=== PATIENT | male | born 1960 | race Caucasian/White ===

== ENCOUNTER → 2016-09-03 | Outpatient (CLI) | payer OTHER | LOC: FIMAGING 16:27 | PROVIDERS: ATTEND Emergency Medicine | DX: R60.0 Localized edema (principal) ==

== ENCOUNTER 2018-05-23 11:21 | Emergency (ER) | payer OTHER ==
--- NOTE | 2018-05-23 12:15 | EDPHY ---
H & P Stated Complaint: R knee pain and swelling x 1 week. Denies trauma, injury Time Seen by Provider: 05/23/18 11:31 HPI/ROS: Chief Complaint: Right leg pain HPI: 57-year-old male's had 1 week of worsening right knee and calf pain and swelling. Denies any falls or injuries. No chest pain or shortness of breath. He was in the hospital about a week and half ago and diagnosed with atrial fibrillation. At that time he was started on rivaroxaban 20 mg daily. He has been taking this without fail. No redness, no fever, no falls or injuries. He is ambulating with discomfort. No history of prior episodes in the past. No history of gout. PMH: ROS: 10 systems were reviewed and were negative except those elements noted in the HPI. Social History: No smoking, no alcohol, no recreational drug use Family History: non-contributory Physical Exam: Gen: Awake, Alert, No Distress HEENT: Nose: no rhinorrhea Eyes: PERRLA, EOMI Mouth: Moist mucosa Neck: Supple, no JVD Chest: nontender, lungs clear to auscultation Heart: S1, S2 normal, no murmur Abd: Soft, non-tender, no guarding Back: no CVA tenderness, no midline tenderness Ext: Right leg is edematous, nonpitting. Measures 2 cm in greater diameter than the left. Calf is firm to touch. Knee is mildly swollen. There is no joint effusion. There is no bony tenderness. He has full flexion extension. No reproducible pain or discomfort. Normal distal perfusion. Capillary refills less than 2 sec. Normal dorsalis pedis pulses. Skin: no rash Neuro: CN II-XII intact, Sensation grossly intact, Strength 5/5 in bilateral upper and lower extremities - Personal History Current Tetanus Diphtheria and Acellular Pertussis (TDAP): Yes Tetanus Vaccine Date: within 10 years - Medical/Surgical History Hx Asthma: No Hx Chronic Respiratory Disease: No Hx Diabetes: No Hx Cardiac Disease: No Hx Renal Disease: No Hx Cirrhosis: No Hx Alcoholism: No Hx HIV/AIDS: No Hx Splenectomy or Spleen Trauma: No Other PMH: Peripheral edema, BIANCA, AFIB, hernia, acid reflux - Social History Smoking Status: Never smoked Constitutional: Initial Vital Signs Temperature (C) 36.5 C 05/23/18 11:28 Heart Rate 85 05/23/18 11:28 Respiratory Rate 16 05/23/18 11:28 Blood Pressure 123/74 H 05/23/18 11:28 O2 Sat (%) 97 05/23/18 11:28 O2 Delivery Mode Room Air Allergies/Adverse Reactions: BEE STINGS Allergy (Uncoded 05/23/18 11:28) PT REPORTS SEVERE SWELLING Home Medications: Medication Instructions Recorded Aspirin 05/23/18 Hydrocodone/Acetaminophen 1 - 2 each PO Q4-6PRN PRN #10 05/23/18 [Hydrocodon-Acetaminophen 5-325] tablet Klor-Con 05/23/18 Losartan/Hydrochlorothiazide 05/23/18 Pepcid 05/23/18 Prednisone 05/23/18 Xarelto 05/23/18 Medical Decision Making - Diagnostics Imaging Results: Imaging Impressions Extremity Venous Study 05/23/18 11:44 Impression: 1. No evidence of deep vein thrombosis. 2. Complex No's cyst. Findings discussed with Selvin Mack MD 05/23/2018 at 12:57. Imaging: Discussed imaging studies w/ paper winder Radiologist ED Course/Re-evaluation: 57-year-old male with leg pain and swelling. He is on rivaroxaban. No joint discomfort or injury. He does have a No cyst. Normal perfusion. Will discharge with oral analgesia, follow up with primary care physician. Departure - Departure Disposition: Home, Routine, Self-Care Clinical Impression: No cyst Condition: Good Instructions: Bakers Cyst (ED) Additional Instructions: Follow up with primary care physician in 3-4 days for further evaluation. Referrals: Jazmin Sheets RN, MANUFACTURING BUSINESS ANALYST [Primary Care Provider] - As per Instructions Prescriptions: Hydrocodone/Acetaminophen [Hydrocodon-Acetaminophen 5-325] 1 - 2 each PO Q4- 6PRN PRN #10 tablet PRN Reason: Pain, Severe
[2018-05-23 13:11] VITALS: BP 117/66
== END 2018-05-23 13:07 | disposition home or self-care (01) ==
LOC: CED 11:21
DX: M71.21 Synovial cyst of popliteal space [Baker], right knee (principal)
CPT/HCPCS: 93971-PO

== ENCOUNTER → 2018-06-02 | Outpatient (CLI) | payer OTHER ==
[~2018-06-02] MED LIST: DEPO METHYLPREDNISOLONE 40 MG/ML SDV ONE; LIDOCAINE 1% 300 MG/30 ML SDV ONE
== END ==
LOC: FIMAGING 12:22
PROVIDERS: ATTEND Physician Assistant
PROC: 3E0U3GC Introduction of Other Therapeutic Substance into Joints, Percutaneous Approach (ICD-10-PCS; principal; 2018-06-02)
DX: M71.21 Synovial cyst of popliteal space [Baker], right knee (principal)
CPT/HCPCS: J1030

== ENCOUNTER 2018-08-03 07:58 | Emergency (ER) | payer OTHER ==
[2018-08-03 08:13] VITALS: BP 137/89
--- NOTE | 2018-08-03 08:25 | EDPHY ---
H & P Stated Complaint: bilateral swelling x 2 months, more painful today Time Seen by Provider: 08/03/18 08:21 HPI/ROS: 58 yo M with hx of hypertension on losartan/hctz and potassium supplement, also with hx of BIANCA on cpap. He has a primary care that he will see on August 19. He was here about 2 months ago with right leg swelliing and at that time found to have a Bakers Cyst, no DVT. His legs have been swollen for several months, but just more painful today. He did work all night. Review of systems as per hpi General no fever no chills no weakness HEENT no eye pain no eye discharge. No eye redness, no sore throat Respiratory no cough, no shortness of breath Cardiac no chest pain, pos peripheral edema GI no abdominal pain, no diarrhea, no constipation, no nausea, no vomiting no flank pain, no hematuria, no dysuria Musculoskeletal pos myalgias, no joint pain Heme no easy bruising, no easy bleeding Endo no polyuria, no polydipsia Skin no rashes, no pruritus Neuro no syncope, no dizziness, no headaches Psych is no suicidal ideation, no homicidal ideation Source: Patient Exam Limitations: No limitations - Personal History Current Tetanus Diphtheria and Acellular Pertussis (TDAP): Yes Tetanus Vaccine Date: within 10 years - Medical/Surgical History Hx Asthma: No Hx Chronic Respiratory Disease: No Hx Diabetes: No Hx Cardiac Disease: Yes Hx Renal Disease: No Hx Cirrhosis: No Hx Alcoholism: No Hx HIV/AIDS: No Hx Splenectomy or Spleen Trauma: No Other PMH: Peripheral edema, BIANCA, AFIB, hernia, acid reflux - Family History Significant Family History: No pertinent family hx - Social History Smoking Status: Never smoked Alcohol Use: None Drug Use: None - Physical Exam Exam: 58 yo M alert and oriented in nad non toxic appearance HEENT atraumatic normocephalic, extraocular muscles intact, anicteric Oropharynx negative for erythema negative exudate, tolerating her own secretions Neck supple no meningismus Lungs clear to auscultation bilaterally Heart regular rate and rhythm without murmur rub or gallop Abdomen obese, bs present, soft nt, no pulsatile masses Back no CVA tenderness, no step-offs, no spinal tenderness Extremities bilateral pitting edema right greater than left Neuro alert and oriented, no focal deficits Constitutional: Initial Vital Signs Temperature (C) 36.7 C 08/03/18 08:11 Heart Rate 90 08/03/18 08:11 Respiratory Rate 16 08/03/18 08:11 Blood Pressure 137/89 H 08/03/18 08:11 O2 Sat (%) 95 08/03/18 08:11 O2 Delivery Mode Room Air Allergies/Adverse Reactions: BEE STINGS Allergy (Mild, Uncoded 08/03/18 08:05) PT REPORTS SEVERE SWELLING Home Medications: Medication Instructions Recorded Aspirin 05/23/18 Klor-Con 05/23/18 Losartan/Hydrochlorothiazide 05/23/18 Medical Decision Making - Diagnostics Imaging Results: Imaging Impressions Extremity Venous Study 08/03/18 09:35 Impression: 1. No major deep venous thrombosis bilateral legs. 2. Suboptimal visualization of bilateral calf veins. 3. Right popliteal fossa No's cyst. Findings and recommendations discussed with Emergency Department physician, Tanisha Carter MD at 10:45 hour, 08/03/2018. Final report concurs with initial preliminary interpretation. ED Course/Re-evaluation: pt seen for bilateral lower leg swelling for several months cannot see primary until the labs ordered cbc, bmp, dimer cbc with anemia bmp wnl dimer elevated therefore ultrasound done no evidence of DVT pos bakers cyst on right Imp Peripheral edema bilateral Bakers cyst on right Plan Elevate, compression stockings, f/u pcp Differential Diagnosis: Differential diagnosis considered but not limited to: peripheral edema, dvt, bakers cyst - Data Points Laboratory Results: 08/03/18 09:10 POC Sodium 140 mEq/L mEq/L (135-145) POC Potassium 3.3 mEq/L mEq/L (3.3-5.0) POC Chloride 104.0 mEq/L mEq/L (97-110) POC Total CO2 23 mEq/L mEq/L (22-31) POC BUN 10 mg/dL mg/dL (7-23) POC Creatinine 0.9 mg/dL mg/dL (0.7-1.3) POC Glucose 84 mg/dL mg/dL (70-100) POC Calcium 9.8 mg/dL mg/dL (8.5-10.4) Point of Care Test Results: CBC CBC Collection Date 08/03/18 CBC Collection Time 09:10 WBC 8.91 RBC 4.42 HGB 12.6 HCT 39.6 PLT 307 Neut # 7.22 Neut 81.1 LYMPH # 0.66 LYMPH 7.4 MCV 89.6 Chemistry 08/03/18 09:10 POC Sodium 140 mEq/L mEq/L (135-145) POC Potassium 3.3 mEq/L mEq/L (3.3-5.0) POC Chloride 104.0 mEq/L mEq/L (97-110) POC Total CO2 23 mEq/L mEq/L (22-31) POC BUN 10 mg/dL mg/dL (7-23) POC Creatinine 0.9 mg/dL mg/dL (0.7-1.3) POC Glucose 84 mg/dL mg/dL (70-100) POC Calcium 9.8 mg/dL mg/dL (8.5-10.4) D-Dimer D-Dimer Collection Date 08/03/18 D-Dimer Collection Time 09:10 D-Dimer (ng/ml) [id number] Departure - Departure Disposition: Home, Routine, Self-Care Clinical Impression: No's cyst of knee, Peripheral edema Condition: Good Instructions: Bakers Cyst (ED), Leg Edema (ED) Referrals: Jazmin Sheets, RN, SOFTWARE SUPPORT SPECIALIST [Primary Care Provider] - As per Instructions
== END 2018-08-03 11:11 | disposition home or self-care (01) ==
LOC: CED 07:58
DX: M71.21 Synovial cyst of popliteal space [Baker], right knee (principal); R60.9 Edema, unspecified; I10 Essential (primary) hypertension; G47.33 Obstructive sleep apnea (adult) (pediatric)
CPT/HCPCS: 80048-ER; 93970-PO; 99284-ER